=== PATIENT | male | born 1965 ===

== ENCOUNTER 2018-12-27 12:45 | Inpatient (IN) | payer OTHER ==
[~2018-12-27] VITALS: Ht 170.2 cm; Wt 93.9 kg
[2019-01-22] MEDS ORDERED: COZAAR100 MG PO (11:27)
[2019-01-22] MEDS ORDERED: LEVOCETIRIZINE PO (11:28)
[2019-01-22] MEDS ORDERED: FAMOTIDINE40 MG PO (11:28)
[2019-01-22] MEDS ORDERED: FLUTICASONE (11:29)
[2019-01-29] MEDS ORDERED: FLONASE16 GM NASAL (09:28)
[2019-01-29] MEDS ORDERED: LEVOCETIRIZINE D5 MG PO (09:30)
[2019-02-03] MEDS ORDERED: CIPRO500 MG PO (11:24)
[2019-02-03] MEDS ORDERED: FLAGYL500MG PO (11:25)
[2019-02-03] MEDS ORDERED: INTESTINEX680 M1 PO (11:26)
[2019-02-03] MEDS ORDERED: TRAM1TAB98 PO (11:26)
== END 2019-02-03 12:24 | disposition home or self-care (01) | DRG 331 ==
LOC: SURH 01-29 06:05 → O/R 01-29 06:05 → SURH 01-29 08:30
PROVIDERS: ADMIT Surgery
PROC: 07TB4ZZ Resection of Mesenteric Lymphatic, Percutaneous Endoscopic Approach (ICD-10-PCS; 2019-01-29)
PROC: 0DTK4ZZ Resection of Ascending Colon, Percutaneous Endoscopic Approach (ICD-10-PCS; principal; 2019-01-29 08:30)
DX: C18.2 Malignant neoplasm of ascending colon (principal); R59.0 Localized enlarged lymph nodes; I10 Essential (primary) hypertension